=== PATIENT | male | born 1975 | race Caucasian/White ===

== ENCOUNTER 2018-08-02 12:16 | Emergency (ER) | payer OTHER ==
[~2018-08-02] VITALS: Ht 175.3 cm; Wt 108.4 kg
--- NOTE | 2018-08-02 12:40 | NUR ---
43 Y/O MALE PRESENTS TO ED WITH C/O HIGH HEART RATE. PER PT "I DID SOME DRUGS LAST NIGHT AND THIS MORNING. COCAINE. LAST I USED WAS ABOUT 7-8 AM. MY HEART IS JUST GOING CRAZY. MY ABDOMEN FEELS TIGHT, BECAUSE I DID A BUNCH OF DRUGS." NO ACUTE DISTESS NOTED. FRIEND BEDSIDE. PT PLACED ON CONT PULSE OX,NIBP, FABRICATION TECHNICIAN. NO C/O N/V/D, TRAUMA, SYNCOPE.
[2018-08-02 12:51] LABS: BASOPHILS # (AUTO) 0.06 x10^3/uL (0-0.1); BASOPHILS % (AUTO) 0 % (0-1); EOSINOPHILS % (AUTO) 0 % (1-7); LYMPHOCYTES # (AUTO) 1.56 x10^3/uL (1-3.4); LYMPHOCYTES % (AUTO) 11 % (22-44); MD NO; MEAN CORPUSCULAR HEMOGLOBIN 28.9 pg (27.5-34.5); MEAN CORPUSCULAR HGB CONC 32.9 g/dL (33.2-36.2); MEAN CORPUSCULAR VOLUME 87.9 fL (81-97); MEAN PLATELET VOLUME 8.5 fL (7.4-10.4); MONOCYTES # (AUTO) 0.81 x10^3/uL (0.2-0.8); MONOCYTES % (AUTO) 6 % (2-9); NEUTROPHILS % (AUTO) 82 % (42-75); PLATELET COUNT 254 x10^3/uL (130-400); RED BLOOD COUNT 5.71 x10^6/uL (4.38-5.82); RED CELL DISTRIBUTION WIDTH 13.9 % (9.4-14.8)
[2018-08-02] MEDS ORDERED: LORazepam 2 MG/ML, 1ML ONE ×2 (12:52→14:01)
[2018-08-02 13:00] LABS: ALANINE AMINOTRANSFERASE 56 U/L (12-78); ALBUMIN 3.9 g/dL (3.4-5.0); ANION GAP 7 mmol/L (5-15); CALCIUM 9.2 mg/dL (8.5-10.1); CHLORIDE 109 mmol/L (98-107); CREATININE 1.18 mg/dL (0.7-1.3)
[2018-08-02] MEDS ORDERED: LORazepam 2 MG/ML, 1ML IVPush ONE ×2 (13:00→14:00)
[2018-08-02] MEDS ORDERED: SODIUM CHLORIDE 0.9% 1,000ML IVBOLUS ONE (13:00)
[2018-08-02 13:05] LABS: ALKALINE PHOSPHATASE 59 U/L (45-117); BILIRUBIN,TOTAL 0.9 mg/dL (0.2-1.0); CREATINE KINASE, TOTAL 422 U/L (39-308); TROPONIN I < 0.015 ng/mL (0.000-0.045)
--- NOTE | 2018-08-02 13:18 | NUR ---
BREAK RN NOTE: REPORT TAKEN FROM PRIMARY RN DANIEL. PIV PLACED, PT MEDICATED PER EMAR, TOLERATED WELL. 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 OXYGEN APPLIED AT 2L/MIN VIA NC ROOM AIR SAT PRIOR TO ATIVAN ADMIN IS 90-91%. PT A&O, RESPS EVEN AND UNLABORED, S/O AT BEDSIDE.
--- NOTE | 2018-08-02 13:40 | NUR ---
RECEIVED BEDSIDE REPORT FROM EMIL SCHILLING. PT GIVEN TISSUE. PT RESTING ON GURNEY. BEDSIDE. NO ACUTE DISTRESS NOTED.
[2018-08-02 14:34] VITALS: BP 123/96
--- NOTE | 2018-08-02 14:35 | NUR ---
PT SLEEPING ON GURNEY. NO ACUTE DISTRESS NOTED. BEDSIDE. WILL CONTINUE TO MONITOR.
--- NOTE | 2018-08-02 15:30 | NUR ---
Patient/Caregiver given discharge instructions and they have confirmed that they understand the instructions. Patient ambulatory with steady gait. PT LEFT WITH ALL PERSONAL BELONGINGS
== END 2018-08-02 15:33 | disposition home or self-care (01) ==
LOC: ED 13:39
DX: R00.2 Palpitations (principal); F14.10 Cocaine abuse, uncomplicated; R06.00 Dyspnea, unspecified
CPT/HCPCS: 36415; 71046; 80053; 82550; 84484; 85025; 93005; 96374; 96375; 99284; J2060; J7030